=== PATIENT | male | born 1980 | race Two or more races ===

== ENCOUNTER 2023-04-21 22:36 | Emergency (ER) | payer SELFPAY ==
[2023-04-21 23:00] VITALS: BP 156/114; PULSE 85; RESP 16; TEMP 37.3; O2SAT 98; BMI 30.3
[2023-04-21] MEDS: CETIRIZINE HCL 10 MG TABLET PO (23:57)
[2023-04-22 00:19] VITALS: BP 136/89; PULSE 81; RESP 16; TEMP 37.1
== END 2023-04-22 00:20 | disposition home or self-care (01) ==
PROVIDERS: Emergency Provider Family Medicine
DX: L03.317 Cellulitis of buttock (principal); T63.331A Toxic effect of venom of brown recluse spider, accidental (unintentional), initial encounter
CPT/HCPCS: 99283; 99284; A9270